=== PATIENT | female | born 2000 | race Caucasian/White ===

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

== ENCOUNTER 2018-07-15 06:21 | Inpatient (IN) ==
[2018-07-15] MEDS ORDERED: NS 100 ML IV 100 ML IV ONE ×3 (06:29→15:08)
[2018-07-15] MEDS ORDERED: AMPICILLIN VIAL 2 GRAM ONE (06:29)
[2018-07-15] MEDS ORDERED: D5LR 1L W PITOCIN 10 UNITS/L 10 UNITS/1,000 ML BAG IV ONE (06:29)
[2018-07-15] MEDS ORDERED: D5 1/2 NS 1L W PITOCIN 20 UNITS/L 20 UNITS/1,000 ML BAG IV ONE (06:30)
[2018-07-15] MEDS ORDERED: PITOCIN ONE (06:30)
[2018-07-15] MEDS ORDERED: D5 1/2 NS 1000 ML 1,000 ML IV ONE (06:30)
[2018-07-15] MEDS ORDERED: AMPICILLIN VIAL 2 GRAM 2 G in NS 100 ML IV + SPIKE MINIBAG* 100 ML IV SCH (06:35)
[2018-07-15] MEDS ORDERED: PITOCIN IVP ONE (07:08)
[2018-07-15] MEDS ORDERED: PHENERGAN INJ 25 MG IV PRN ×2 (07:08→20:26)
[2018-07-15] MEDS ORDERED: D5LR 1L W PITOCIN 10 UNITS/L 10 UNITS/1,000 ML BAG IV PRN (07:08)
[2018-07-15] MEDS ORDERED: REGLAN INJ 10 MG VIAL IVP PRN (07:08)
[2018-07-15] MEDS ORDERED: MORPHINE SULFATE INJ 2 MG INJ IVP PRN (07:08)
[2018-07-15] MEDS ORDERED: D5 1/2 NS 1000 ML 1,000 ML IV SCH (07:08)
--- NOTE | 2018-07-15 07:15 | DR.OB ---
OB Quick Note - Assessment/Plan Assessment/Plan: L&D 07/15/18 at 6:58am S-No complaint. O-Afebrile,VSS LMR=044 with good LTV, +accel, no decel. CTX=none CVX=1cm/50%/-1/VTX AROM with clear fluid. IUPC and FSE placed. A-IUP at 39 0/7 weeks for induction +GBS P-Begin pitocin induction IV ABX in labor for +GBS Anticipate
[2018-07-15] MEDS ORDERED: NUBAIN INJ 10 ONE ×2 (09:26→11:48)
[2018-07-15] MEDS: NUBAIN INJ 200 MG VIAL MULTIDOSE IVP PRN ×2 (09:29→11:51)
[2018-07-15] MEDS ORDERED: AMPICILLIN VIAL 1 GRAM ONE ×2 (10:15→15:08)
[2018-07-15] MEDS: AMPICILLIN VIAL 1 GRAM 1 G in NS 50 ML IV + SPIKE MINIBAG* 50 ML IV SCH ×3 (10:21→18:06)
[2018-07-15] MEDS ORDERED: PHENERGAN INJ 25 MG ONE (11:19)
--- NOTE | 2018-07-15 11:54 | DR.OB ---
OB Quick Note - Assessment/Plan Assessment/Plan: L&D 07/15/18 at 11:50am Pitocin=20mu/min. Ampicillin S-Notes pain CTX. O-Afebrile,VSS XGX=806 with good LTV, +accel, no decel. CTX=q 1 1/2 to 2 1/2 min., about 45-55mmHg CVX=2-3cm/75%/-1 A-IUP at 39 0/7 weeks for induction +GBS P-Cont. pitocin induction Anticipate
[2018-07-15] MEDS ORDERED: LR 1000 ML IV 1,000 ML IV ONE (12:32)
[2018-07-15] MEDS ORDERED: FENTANYL INJ 100 mcg ONE (12:32)
[2018-07-15] MEDS ORDERED: NAROPIN EPIDURAL 0.2% + FENTANYL 90MCG 60 ML EPI ONE ×2 (12:33→18:08)
[2018-07-15] MEDS ORDERED: XYLOCAINE 1 % (PLAIN) ONE (12:33)
[2018-07-15] MEDS ORDERED: ADRENALINE CHL INJ ONE (12:33)
[2018-07-15] MEDS ORDERED: XYLOCAINE-MPF 1% ONE (12:34)
--- NOTE | 2018-07-15 16:17 | DR.OB ---
OB Quick Note - Assessment/Plan Assessment/Plan: L&D 07/15/18 at 4:00pm Pitocin=20mu/min. Ampicillin S-No complaint. s/p epidural. O-Afebrile,VSS TXG=694 with good LTV, +accel, no decel. CTX=q 1 1/2 to 2 1/2 min., about 45-55mmHg CVX=4-5cm/80%/-1 A-IUP at 39 0/7 weeks for induction +GBS P-Cont. pitocin induction Cont. ampicillin in labor Anticipate
--- NOTE | 2018-07-15 20:26 | DR.OB ---
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 Head delivered over intact perineum. No nuchal cord. Nose and mouth bulb suctioned. Body delivered over intact perineum with right hand at face. Cord clamped x 2 and cut. Infant handed to attendant. Cord sent for gases. Placenta delivered spontaneously / intact / 3 vessel cord. No CVX / vaginal / perineal tears noted. Viable female infant, compound VTX/OA, wt=6'12" and 9/9, stable to NBN. Mother stable to RR. HQO=035se.
[2018-07-15] MEDS ORDERED: D5 1/2 NS 1000 ML 1,000 ML with PITOCIN 20 UNITS IV SCH ×2 (21:00)
[2018-07-15] MEDS ORDERED: AMBIEN PO PRN (21:09)
[2018-07-15] MEDS ORDERED: ADACEL or BOOSTRIX TDaP VACCINE IM ONE (21:09)
[2018-07-15] MEDS ORDERED: MILK OF MAGNESIA PO PRN (21:09)
[2018-07-15] MEDS ORDERED: DERMOPLAST SPRAY TOP PRN (21:09)
[2018-07-16] MEDS: ZANTAC PO SCH ×3 (00:30→20:46)
[2018-07-16] MEDS: MOTRIN TAB 800 MG PO PRN ×3 (00:50→20:46)
[2018-07-16 05:11] LABS: HEMATOCRIT 27.4 % (36.0-47.0); HEMOGLOBIN 9.3 g/dL (12.0-16.0)
[2018-07-16] MEDS ORDERED: PROVENTIL NEB TX 0.083% 2.5MG/ 3ML NEB SCH (09:00)
[2018-07-16] MEDS: PRENATAL PLUS PO SCH (09:15)
[2018-07-16] MEDS: COLACE CAP 100 MG PO SCH ×2 (09:15→20:47)
[2018-07-16] MEDS ORDERED: ADACEL or BOOSTRIX TDaP VACCINE IM ONE (09:27)
[2018-07-16] MEDS: FERROUS GLUCONATE PO SCH (17:30)
[2018-07-17] MEDS: FERROUS GLUCONATE PO SCH (06:06)
[2018-07-17 08:13] VITALS: BP 120/76
[2018-07-17] MEDS: ZANTAC PO SCH (08:26)
[2018-07-17] MEDS: COLACE CAP 100 MG PO SCH (08:26)
[2018-07-17] MEDS: PRENATAL PLUS PO SCH (08:26)
== END 2018-07-17 11:30 | disposition home or self-care (01) | DRG 807 ==
LOC: LD 06:21 → MED/SURG 21:19
PROVIDERS: ADMIT Specialist; ATTEND Specialist
DX: O98.32 Other infections with a predominantly sexual mode of transmission complicating childbirth; O28.8 Other abnormal findings on antenatal screening of mother; Z23 Encounter for immunization; Z3A.39 39 weeks gestation of pregnancy; Z01.818 Encounter for other preprocedural examination; O99.824 Streptococcus B carrier state complicating childbirth; Z37.0 Single live birth; Z01.812 Encounter for preprocedural laboratory examination; D50.8 Other iron deficiency anemias
CPT/HCPCS: 36415; 59409; 80048; 80307; 81001; 85014; 85018; 85025; 86592; 86850; 86900; 86901; 87086; 87088; 87186; 90715; A4222; S0197; G0434; J0171; J0290; J2300; J2550; J2590; J3010; J7050; J7120; J7613; S5010

== ENCOUNTER 2020-05-24 06:21 | Inpatient (IN) ==
[2020-05-24] MEDS ORDERED: PHENERGAN INJ 25 MG IM PRN ×2 (06:28→12:04)
[2020-05-24] MEDS ORDERED: D5LR 1L W PITOCIN 10 UNITS/L 10 UNITS/1,000 ML BAG IV PRN (06:28)
[2020-05-24] MEDS ORDERED: PITOCIN IVP ONE (06:28)
[2020-05-24] MEDS ORDERED: MORPHINE SULFATE INJ 2 MG INJ IVP PRN (06:28)
[2020-05-24] MEDS ORDERED: REGLAN INJ 10 MG VIAL IVP PRN (06:28)
[2020-05-24] MEDS ORDERED: BETADINE SOLN ONE (06:29)
[2020-05-24] MEDS ORDERED: STADOL INJ IVP PRN (06:30)
[2020-05-24] MEDS ORDERED: D5 1/2 NS 1L W PITOCIN 20 UNITS/L 20 UNITS/1,000 ML BAG IV ONE (06:31)
[2020-05-24] MEDS ORDERED: FENTANYL 2 mcg/mL-ROPIV 0.1%-NS EPIDURAL 200 ML EPI ONE (06:52)
[2020-05-24] MEDS ORDERED: LR 1000 ML IV 1,000 ML IV ONE (06:52)
[2020-05-24] MEDS ORDERED: FENTANYL INJ 100 mcg ONE (06:55)
[2020-05-24] MEDS ORDERED: D5 1/2 NS 1000 ML 1,000 ML IV SCH (07:00)
--- NOTE | 2020-05-24 07:00 | DR.OB ---
OB Quick Note - Assessment/Plan Assessment/Plan: L&D 05/24/20 at 6:55am S-No complaint. O-Afebrile,VSS XAE=072 with good LTV, +accel, no decel. CTX=mild, occasional CVX=3cm/75%/-1/VTX AROM with light meconium. IUPC and FSE placed. A-IUP at 40 2/7 weeks for induction P-Begin pitocin induction Anticipate
[2020-05-24 07:03] LABS: BASOPHILS % (AUTO) 0.4 % (0.2-1.0); EOSINOPHILS # (AUTO) 0.1 x10^3/uL (0.0-0.2); HEMATOCRIT 31.9 % (36.0-47.0); HEMOGLOBIN 10.6 g/dL (12.0-16.0); LYMPHOCYTES # (AUTO) 2.5 X10^3/uL (1.3-2.9); LYMPHOCYTES % (AUTO) 21.9 % (21.0-51.0); MEAN CORPUSCULAR HGB CONC 33.1 g/dL (33.0-35.0); MEAN CORPUSCULAR VOLUME 78.6 fL (80.0-100.0); MEAN PLATELET VOLUME 8.9 fL (7.4-11.0); MONOCYTES # (AUTO) 0.9 x10^3/uL (0.3-0.8); NEUTROPHILS # (AUTO) 7.9 x10^3/uL (2.2-4.8); NEUTROPHILS % (AUTO) 68.7 % (42.0-75.0); PLATELET COUNT 262 X10^3/uL (150.0-450.0); RED BLOOD COUNT 4.06 X10^6/uL (3.5-5.4); RED CELL DISTRIBUTION WIDTH 15.5 % (11.6-16.5); WHITE BLOOD COUNT 11.5 X10^3/uL (3.6-10.0)
[2020-05-24 07:15] LABS: BLOOD UREA NITROGEN 6 mg/dL (7-18); CALCIUM 9.2 mg/dL (8.5-10.1); CARBON DIOXIDE 21.4 mmol/L (21-32); CHLORIDE 103 mmol/L (98-107); CREATININE 0.63 mg/dL (0.55-1.02); SODIUM 136 mmol/L (136-145); eGFR NON BLACK RACES > 60 (>60)
[2020-05-24 07:22] LABS: BILIRUBIN,URINE NEGATIVE (NEGATIVE); BLOOD/HEMOGLOBIN,URINE 1+ (NEGATIVE); GLUCOSE, URINE NEGATIVE (NEGATIVE); KETONES,URINE 1+ (NEGATIVE); LEUKOCYTE ESTERASE ,URINE 3+ (NEGATIVE); NITRITES,URINE NEGATIVE (NEGATIVE); PROTEIN,URINE 1+ (NEGATIVE); UROBILINOGEN,URINE 1+ (NORMAL)
[2020-05-24 07:31] LABS: APPEARANCE,URINE HAZY (CLEAR); BACTERIA,URINE NEGATIVE /HPF (NEGATIVE); COLOR,URINE YELLOW (YELLOW); MUCUS,URINE FEW /HPF (NEGATIVE); RBC,URINE 0-2 /HPF (0-3); SQUAMOUS EPITHELIAL CELL,UR MANY /HPF (NEGATIVE)
[2020-05-24] MEDS ORDERED: REGLAN INJ 10 MG VIAL ONE (08:44)
[2020-05-24] MEDS ORDERED: MARCAINE or SENSORCAINE 0.25% WITH EPI IJ ONE (09:38)
--- NOTE | 2020-05-24 12:04 | DR.OB ---
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 Head delivered over intact perineum. No nuchal cord. Nose and mouth bulb suctioned. Body delivered over intact perineum. Cord clamped x 2 and cut. Infant handed to attendant. Cord sent for gases. Placenta delivered spontaneously / intact / 3 vessel cord. No CVX / vaginal / perineal tears noted. Viable female infant, VTX/OA, wt=8'14" and 8/9, stable to NBN. Mother stable to RR. WEV=493pi.
[2020-05-24] MEDS ORDERED: MILK OF MAGNESIA PO PRN (13:14)
[2020-05-24] MEDS ORDERED: ADACEL or BOOSTRIX TDaP VACCINE IM ONE ×2 (13:14→16:17)
[2020-05-24] MEDS ORDERED: AMBIEN PO PRN (13:14)
[2020-05-24] MEDS ORDERED: DERMOPLAST PAIN RELIEF SPRAY TOP PRN (13:14)
[2020-05-24] MEDS: D5 1/2 NS 1000 ML 1,000 ML with PITOCIN 20 UNITS IV SCH ×4 (13:17→23:20)
[2020-05-24] MEDS: MOTRIN TAB 800 MG PO PRN (16:01)
[2020-05-25] MEDS: MOTRIN TAB 800 MG PO PRN (00:05)
[2020-05-25 04:10] LABS: HEMATOCRIT 28.4 % (36.0-47.0); HEMOGLOBIN 9.5 g/dL (12.0-16.0)
[2020-05-25] MEDS ORDERED: DEPO-PROVERA CONTRACEPTIVE INJ IM ONE ×2 (07:30→08:51)
[2020-05-25] MEDS: D5 1/2 NS 1000 ML 1,000 ML with PITOCIN 20 UNITS IV SCH ×2 (08:45)
[2020-05-25] MEDS ORDERED: PRENATAL PLUS PO SCH (09:00)
[2020-05-25 13:12] VITALS: BP 129/77
== END 2020-05-25 13:40 | disposition home or self-care (01) | DRG 807 ==
LOC: LD 06:21 → MED/SURG 13:07
PROVIDERS: ADMIT Specialist; ATTEND Specialist
DX: O80 Encounter for full-term uncomplicated delivery; Z3A.40 40 weeks gestation of pregnancy; Z37.0 Single live birth; Z23 Encounter for immunization